=== PATIENT | male | born 1945 | race American Indian/Alaskan Native ===

== ENCOUNTER 2018-10-27 15:16 | Inpatient (IN) | payer OTHER ==
[~2018-10-27] VITALS: Ht 172.7 cm; Wt 89.0 kg
[2018-10-27 17:07] LABS: BASOPHIL % 0.5 % (0-2); PLATELET COUNT 202 x10^3mcL (130-400); RED CELL DISTRIBUTION WIDTH 14.4 % (11.5-14.5)
[2018-10-27 17:24] LABS: OSMOLALITY SERUM 294 mOsm/kg (278-298)
[2018-10-27 17:29] LABS: UA SPECIFIC GRAVITY 1.015 (1.005-1.035); microscopic required? YES; urine erythrocyte NEGATIVE (NEGATIVE)
[2018-10-27 17:31] LABS: ALBUMIN 3.6 g/dL (3.4-5.0); ALKALINE PHOSPHATASE 116 U/L (46-116); ALT/SGPT 48 U/L (16-63); AST/SGOT 68 U/L (15-37); BILIRUBIN TOTAL 1.77 mg/dL (0.20-1.00); CALCIUM 9.3 mg/dL (8.5-10.1); CHLORIDE SERUM 99 mmol/L (98-107); CREATININE SERUM 1.3 mg/dL (0.7-1.3); FREE T4 1.06 ng/dL (0.76-1.46); GLUCOSE SERUM 196 mg/dL (74-106); LIPASE 90 IU/L (73-393)
[2018-10-27 17:37] LABS: AMPHETAMINE QUAL UR NONE DETECTED (See below)
[2018-10-27 17:40] LABS: SODIUM SERUM 137 mmol/L (136-145)
[2018-10-27 17:42] LABS: TOTAL PROTEIN, SERUM 8.6 g/dL (6.4-8.2)
[2018-10-27 17:44] LABS: POTASSIUM SERUM 2.8 mmol/L (3.5-5.1)
[2018-10-27] MEDS ORDERED: CARVEDILOL3.125 M1 PO (18:38)
[2018-10-27] MEDS ORDERED: PLA75 PO (18:38)
[2018-10-27] MEDS ORDERED: FUROSEMIDE20 MG PO (18:39)
[2018-10-27] MEDS ORDERED: LIPI20 PO (18:39)
[2018-10-27] MEDS ORDERED: TAMSULOSIN HYD0.4 M1 PO (18:39)
[2018-10-27] MEDS ORDERED: FENOFIBRATE MI200 MG PO (18:39)
[2018-10-27] MEDS ORDERED: METFORMIN ER500 M1 PO (18:40)
[2018-10-27] MEDS ORDERED: NEURONTIN600 MG PO (18:40)
[2018-10-27] MEDS ORDERED: HYDROCHLOROTHIA25 MG PO (18:41)
[2018-10-27] MEDS ORDERED: MIRAPEX0.25 MG PO (18:41)
[2018-10-27] MEDS ORDERED: POTASSIUM CHLO20 ME1 PO (18:41)
[2018-10-27] MEDS ORDERED: OMEPRAZOLE40 M1 PO (18:42)
[2018-10-27] MEDS ORDERED: CETIRIZINE HYDR10 MG PO (18:42)
[2018-10-27] MEDS ORDERED: HUMALOG100 UNIT/1 SQ (18:42)
[2018-10-27] MEDS ORDERED: VITAMIN D50000 I4 PO (18:43)
[2018-10-27] MEDS ORDERED: CENTRUM MEN'S1 EACH PO (18:43)
[2018-10-27 23:56] VITALS: BP 134/76
[2018-10-28] VITALS (7 sets, daily range): BP systolic 95–135; BP diastolic 58–80; Ht 172.7 cm; Wt 89.0 kg
[2018-10-28 17:15] LABS: CALCIUM 9.3 mg/dL (8.5-10.1); CARBON DIOXIDE 27.5 mmol/L (21-32); CHLORIDE SERUM 101 mmol/L (98-107); CREATININE SERUM 1.4 mg/dL (0.7-1.3); GLUCOSE SERUM 200 mg/dL (74-106); POTASSIUM SERUM 3.1 mmol/L (3.5-5.1); SODIUM SERUM 138 mmol/L (136-145)
[2018-10-29 06:02] VITALS: BP 129/85
[2018-10-29 07:24] LABS: ALKALINE PHOSPHATASE 102 U/L (46-116); ALT/SGPT 40 U/L (16-63); AST/SGOT 61 U/L (15-37); BILIRUBIN TOTAL 1.97 mg/dL (0.20-1.00); CARBON DIOXIDE 27.6 mmol/L (21-32); CHLORIDE SERUM 100 mmol/L (98-107); CREATININE SERUM 1.3 mg/dL (0.7-1.3); GLUCOSE SERUM 191 mg/dL (74-106); MAGNESIUM 2.5 mg/dL (1.8-2.4); SODIUM SERUM 139 mmol/L (136-145)
[2018-10-29 07:25] LABS: TOTAL PROTEIN, SERUM 8.3 g/dL (6.4-8.2)
[2018-10-29 07:39] LABS: BASOPHIL % 0.2 % (0-2); PLATELET COUNT 202 x10^3mcL (130-400); RED CELL DISTRIBUTION WIDTH 14.2 % (11.5-14.5)
[2018-10-29 08:30] VITALS: BP 105/63
[2018-10-29 13:00] VITALS: BP 102/65
[2018-10-29 15:19] VITALS: BP 102/65
== END 2018-10-29 16:31 | disposition home health service (06) | DRG 865 ==
LOC: ED 15:16 → DU 23:01
PROVIDERS: Emergency Medicine; ADMIT Internal Medicine Pulmonary Disease
DX: B34.9 Viral infection, unspecified (principal); G92 Toxic encephalopathy; T40.4X5A Adverse effect of other synthetic narcotics, initial encounter; E87.6 Hypokalemia; E11.9 Type 2 diabetes mellitus without complications; I10 Essential (primary) hypertension; G25.81 Restless legs syndrome; M25.512 Pain in left shoulder; M19.90 Unspecified osteoarthritis, unspecified site; N42.9 Disorder of prostate, unspecified; E78.5 Hyperlipidemia, unspecified; Z96.652 Presence of left artificial knee joint; Y92.009 Unspecified place in unspecified non-institutional (private) residence as the place of occurrence of the external cause
CPT/HCPCS: 82962; 83880; 84439; 87804; G0480; J1885; J1956; J2060; J2270; J2543; J3475; J7050; Q0092

== ENCOUNTER 2018-11-01 07:10 | Inpatient (IN) | payer OTHER ==
[~2018-11-01] VITALS: Ht 175.3 cm; Wt 87.6 kg
[~2018-11-01 07:10] MED LIST: CARVEDILOL3.125 M1 PO; CENTRUM MEN'S1 EACH PO; CETIRIZINE HYDR10 MG PO; FENOFIBRATE MI200 MG PO; FUROSEMIDE20 MG PO; HUMALOG100 UNIT/1 SQ; HYDROCHLOROTHIA25 MG PO; LIPI20 PO; METFORMIN ER500 M1 PO; MIRAPEX0.25 MG PO; NEURONTIN600 MG PO; OMEPRAZOLE40 M1 PO; PLA75 PO; POTASSIUM CHLO20 ME1 PO; TAMSULOSIN HYD0.4 M1 PO; VITAMIN D50000 I4 PO
[2018-11-01 07:13] VITALS: Ht 175.3 cm; Wt 87.6 kg
[2018-11-01 07:56] LABS: BASOPHIL % 0.4 % (0-2); PLATELET COUNT 347 x10^3mcL (130-400); RED CELL DISTRIBUTION WIDTH 13.7 % (11.5-14.5)
[2018-11-01 08:23] LABS: ALBUMIN 2.8 g/dL (3.4-5.0); ALKALINE PHOSPHATASE 135 U/L (46-116); ALT/SGPT 41 U/L (16-63); AST/SGOT 66 U/L (15-37); BILIRUBIN TOTAL 1.72 mg/dL (0.20-1.00); CALCIUM 9.4 mg/dL (8.5-10.1); CARBON DIOXIDE 26.1 mmol/L (21-32); CHLORIDE SERUM 100 mmol/L (98-107); CREATININE SERUM 1.3 mg/dL (0.7-1.3); GLUCOSE SERUM 216 mg/dL (74-106); SODIUM SERUM 137 mmol/L (136-145); TOTAL PROTEIN, SERUM 8.4 g/dL (6.4-8.2)
[2018-11-01 08:26] LABS: POTASSIUM SERUM 2.9 mmol/L (3.5-5.1)
[2018-11-01 09:29] LABS: UA SPECIFIC GRAVITY 1.015 (1.005-1.035); microscopic required? YES; urine erythrocyte NEGATIVE (NEGATIVE)
[2018-11-01 12:15] VITALS: BP 125/74
[2018-11-01 17:01] VITALS: BP 106/60
[2018-11-01 20:30] VITALS: BP 106/64
[2018-11-02 05:56] VITALS: BP 113/60
[2018-11-02 06:31] LABS: CALCIUM 8.9 mg/dL (8.5-10.1); CARBON DIOXIDE 25.2 mmol/L (21-32); CHLORIDE SERUM 105 mmol/L (98-107); GLUCOSE SERUM 191 mg/dL (74-106); MAGNESIUM 2.5 mg/dL (1.8-2.4); SODIUM SERUM 140 mmol/L (136-145)
[2018-11-02 07:30] VITALS: BP 124/71
[2018-11-02] MEDS ORDERED: FUROSEMIDE20 MG PO (11:00)
[2018-11-02 12:30] VITALS: BP 123/81
[2018-11-02 13:03] VITALS: BP 120/81
[2018-11-02 17:42] VITALS: BP 128/79
[2018-11-02 20:18] VITALS: BP 119/74
[2018-11-03 04:35] VITALS: BP 131/80
[2018-11-03 07:31] LABS: CALCIUM 9.2 mg/dL (8.5-10.1); CARBON DIOXIDE 21.5 mmol/L (21-32); CHLORIDE SERUM 108 mmol/L (98-107); CREATININE SERUM 0.9 mg/dL (0.7-1.3); GLUCOSE SERUM 167 mg/dL (74-106); MAGNESIUM 2.3 mg/dL (1.8-2.4); POTASSIUM SERUM 4.2 mmol/L (3.5-5.1); SODIUM SERUM 142 mmol/L (136-145)
[2018-11-03 08:49] VITALS: BP 129/82
[2018-11-03 08:55] VITALS: BP 107/58; BP 129/82
== END 2018-11-03 12:50 | DRG 641 ==
LOC: ED 07:10 → DU 10:30
PROVIDERS: Emergency Medicine; ADMIT Internal Medicine Pulmonary Disease
DX: E87.6 Hypokalemia (principal); J98.11 Atelectasis; T50.1X5A Adverse effect of loop [high-ceiling] diuretics, initial encounter; R26.81 Unsteadiness on feet; E86.0 Dehydration; E87.2 Acidosis; R09.02 Hypoxemia; R50.9 Fever, unspecified; M75.32 Calcific tendinitis of left shoulder; M19.90 Unspecified osteoarthritis, unspecified site; N42.9 Disorder of prostate, unspecified; G25.81 Restless legs syndrome; I10 Essential (primary) hypertension; E11.9 Type 2 diabetes mellitus without complications; E78.5 Hyperlipidemia, unspecified; Z96.652 Presence of left artificial knee joint; Y92.009 Unspecified place in unspecified non-institutional (private) residence as the place of occurrence of the external cause
CPT/HCPCS: 36600; 82962; 85378; 87804; 97112-GP; 97116-GP; 97530-GP; J1644; J1885; J2060; J3475; J3480; Q0092

== ENCOUNTER 2018-11-17 14:38 | Observation (INO) | payer OTHER ==
[~2018-11-17] VITALS: Ht 170.2 cm; Wt 85.5 kg
[2018-11-17 14:42] VITALS: Ht 170.2 cm; Wt 85.5 kg
[2018-11-17] MEDS ORDERED: LASIX20 MG PO (15:06)
[2018-11-17] MEDS ORDERED: HUMULIN 70/303 ML SQ ×2 (15:11)
[2018-11-17] MEDS ORDERED: HYDROCHLOROTHIA25 MG PO (15:20)
[2018-11-17 15:32] LABS: BASOPHIL % 0.2 % (0-2); RED CELL DISTRIBUTION WIDTH 13.5 % (11.5-14.5)
[2018-11-17 15:36] LABS: PLATELET COUNT 671 x10^3mcL (130-400)
[2018-11-17 16:04] LABS: ALKALINE PHOSPHATASE 175 U/L (46-116); ALT/SGPT 32 U/L (16-63); AMYLASE 43 U/L (25-115); AST/SGOT 47 U/L (15-37); BILIRUBIN TOTAL 1.6 mg/dL (0.20-1.00); CALCIUM 9.4 mg/dL (8.5-10.1); CARBON DIOXIDE 22.8 mmol/L (21-32); CHLORIDE SERUM 93 mmol/L (98-107); CREATININE SERUM 1.3 mg/dL (0.7-1.3); GLUCOSE SERUM 188 mg/dL (74-106); LIPASE 150 IU/L (73-393); MAGNESIUM 2.1 mg/dL (1.8-2.4); SODIUM SERUM 134 mmol/L (136-145); T4(THYROXINE) 10.2 ug/dL (4.7-13.3)
[2018-11-17 16:15] LABS: ALBUMIN 2.3 g/dL (3.4-5.0); CHOLESTEROL 74 mg/dL (<200); HDL CHOLESTEROL 17 mg/dL (40-60); TOTAL PROTEIN, SERUM 9.1 g/dL (6.4-8.2)
[2018-11-17 16:18] LABS: POTASSIUM SERUM 2.6 mmol/L (3.5-5.1)
[2018-11-17 17:22] LABS: UA SPECIFIC GRAVITY 1.015 (1.005-1.035); microscopic required? YES; urine erythrocyte NEGATIVE (NEGATIVE)
[2018-11-17 17:32] LABS: AMPHETAMINE QUAL UR NONE DETECTED (See below)
[2018-11-17 21:32] VITALS: BP 110/70
[2018-11-18 05:34] VITALS: BP 113/70
[2018-11-18 07:32] LABS: BASOPHIL % 0.1 % (0-2); RED CELL DISTRIBUTION WIDTH 13.8 % (11.5-14.5)
[2018-11-18 07:48] LABS: PLATELET COUNT 519 x10^3mcL (130-400)
[2018-11-18 08:14] LABS: CALCIUM 8.6 mg/dL (8.5-10.1); CARBON DIOXIDE 26.8 mmol/L (21-32); CHLORIDE SERUM 105 mmol/L (98-107); CREATININE SERUM 0.9 mg/dL (0.7-1.3); GLUCOSE SERUM 148 mg/dL (74-106); MAGNESIUM 2.1 mg/dL (1.8-2.4); POTASSIUM SERUM 3.1 mmol/L (3.5-5.1); SODIUM SERUM 142 mmol/L (136-145)
[2018-11-18 09:00] VITALS: BP 104/58
[2018-11-18 12:35] VITALS: BP 105/71
[2018-11-18 16:35] VITALS: BP 108/72
[2018-11-18 21:24] VITALS: BP 102/66
[2018-11-19 05:11] VITALS: BP 111/70
[2018-11-19 07:36] LABS: CALCIUM 8.7 mg/dL (8.5-10.1); CARBON DIOXIDE 29.6 mmol/L (21-32); CHLORIDE SERUM 105 mmol/L (98-107); GLUCOSE SERUM 123 mg/dL (74-106); MAGNESIUM 1.7 mg/dL (1.8-2.4); POTASSIUM SERUM 3.4 mmol/L (3.5-5.1); SODIUM SERUM 144 mmol/L (136-145)
[2018-11-19 09:57] VITALS: BP 113/77
[2018-11-19 13:24] VITALS: BP 110/63
[2018-11-19 18:40] VITALS: BP 104/97
== END 2018-11-19 18:57 | disposition left against medical advice (07) | DRG 640 ==
LOC: ED 14:38 → DU 18:54
PROVIDERS: Emergency Medicine; Internal Medicine Pulmonary Disease; ADMIT Internal Medicine Pulmonary Disease
DX: E87.6 Hypokalemia (principal); G93.41 Metabolic encephalopathy; E44.1 Mild protein-calorie malnutrition; R55 Syncope and collapse; R26.81 Unsteadiness on feet; M19.90 Unspecified osteoarthritis, unspecified site; M75.32 Calcific tendinitis of left shoulder; I10 Essential (primary) hypertension; N42.9 Disorder of prostate, unspecified; E78.5 Hyperlipidemia, unspecified; G25.81 Restless legs syndrome; Z96.652 Presence of left artificial knee joint
CPT/HCPCS: 36600; 82962; 83880; G0378; G0480; J1815; J1956; J2930; J3480; J7030; J7040; Q0092

== ENCOUNTER 2018-11-29 10:50 | Inpatient (IN) | payer OTHER ==
[~2018-11-29] VITALS: Ht 172.7 cm; Wt 79.4 kg
[~2018-11-29 10:50] MED LIST changes: +HUMULIN 70/303 ML SQ; +LASIX20 MG PO
[2018-11-29 10:58] VITALS: Ht 172.7 cm; Wt 79.4 kg
[2018-11-29 11:20] LABS: BASOPHIL % 0.3 % (0-2); RED CELL DISTRIBUTION WIDTH 13.9 % (11.5-14.5)
[2018-11-29 11:30] LABS: PLATELET COUNT 634 x10^3mcL (130-400)
[2018-11-29 11:37] LABS: CALCIUM 9.2 mg/dL (8.5-10.1); CARBON DIOXIDE 26.2 mmol/L (21-32); CHLORIDE SERUM 103 mmol/L (98-107); CREATININE SERUM 0.9 mg/dL (0.7-1.3); GLUCOSE SERUM 146 mg/dL (74-106); POTASSIUM SERUM 4.1 mmol/L (3.5-5.1); SODIUM SERUM 137 mmol/L (136-145)
[2018-11-29 11:49] LABS: ALKALINE PHOSPHATASE 192 U/L (46-116); ALT/SGPT 21 U/L (16-63); AMYLASE 26 U/L (25-115); AST/SGOT 34 U/L (15-37); BILIRUBIN TOTAL 1.2 mg/dL (0.20-1.00); LIPASE 80 IU/L (73-393); T4(THYROXINE) 8.1 ug/dL (4.7-13.3)
[2018-11-29 11:53] LABS: CHOLESTEROL 52 mg/dL (<200); HDL CHOLESTEROL 19 mg/dL (40-60); TOTAL PROTEIN, SERUM 8.4 g/dL (6.4-8.2)
[2018-11-29 12:49] LABS: microscopic required? YES; urine erythrocyte TRACE (NEGATIVE)
[2018-11-29 12:56] LABS: AMPHETAMINE QUAL UR NONE DETECTED (See below)
[2018-11-29 16:15] VITALS: BP 120/70
[2018-11-29 20:47] VITALS: BP 110/67
[2018-11-30 05:39] VITALS: BP 119/71
[2018-11-30 06:37] LABS: CALCIUM 8.8 mg/dL (8.5-10.1); CARBON DIOXIDE 23.1 mmol/L (21-32); CHLORIDE SERUM 105 mmol/L (98-107); CREATININE SERUM 0.8 mg/dL (0.7-1.3); GLUCOSE SERUM 121 mg/dL (74-106); POTASSIUM SERUM 4.2 mmol/L (3.5-5.1); SODIUM SERUM 139 mmol/L (136-145)
[2018-11-30 07:50] LABS: BASOPHIL % 0.1 % (0-2); RED CELL DISTRIBUTION WIDTH 13.5 % (11.5-14.5)
[2018-11-30 07:53] LABS: PLATELET COUNT 603 x10^3mcL (130-400)
[2018-11-30 09:11] VITALS: BP 116/70
[2018-11-30 18:03] VITALS: BP 117/70
[2018-11-30 21:51] VITALS: BP 123/72
[2018-12-01 05:41] VITALS: BP 120/73
[2018-12-01 07:12] LABS: BASOPHIL % 0 % (0-2); PLATELET COUNT 692 x10^3mcL (130-400); RED CELL DISTRIBUTION WIDTH 14.3 % (11.5-14.5)
[2018-12-01 07:13] LABS: CALCIUM 8.8 mg/dL (8.5-10.1); CARBON DIOXIDE 22.3 mmol/L (21-32); CHLORIDE SERUM 108 mmol/L (98-107); CREATININE SERUM 0.7 mg/dL (0.7-1.3); GLUCOSE SERUM 125 mg/dL (74-106); POTASSIUM SERUM 4.1 mmol/L (3.5-5.1); SODIUM SERUM 144 mmol/L (136-145)
[2018-12-01 07:43] VITALS: BP 110/66
[2018-12-01 08:45] VITALS: BP 106/68
[2018-12-01 15:31] VITALS: BP 112/70
[2018-12-01 20:50] VITALS: BP 101/64
[2018-12-02 05:57] VITALS: BP 129/74
[2018-12-02 08:31] VITALS: BP 125/73
[2018-12-02 08:36] LABS: CHLORIDE SERUM 108 mmol/L (98-107); POTASSIUM SERUM 3.7 mmol/L (3.5-5.1); SODIUM SERUM 140 mmol/L (136-145)
[2018-12-02 08:53] LABS: BASOPHIL % 0.2 % (0-2); PLATELET COUNT 656 x10^3mcL (130-400)
[2018-12-02 09:01] LABS: CARBON DIOXIDE 20.8 mmol/L (21-32); CREATININE SERUM 0.7 mg/dL (0.7-1.3); GLUCOSE SERUM 122 mg/dL (74-106)
[2018-12-02 12:23] VITALS: BP 130/72
[2018-12-02 16:41] VITALS: BP 129/73
[2018-12-02 20:37] VITALS: BP 110/71
[2018-12-03 05:34] VITALS: BP 124/77
[2018-12-03 07:11] VITALS: BP 131/81
[2018-12-03 16:51] VITALS: BP 124/79
[2018-12-03 21:27] VITALS: BP 120/74
[2018-12-04 05:32] VITALS: BP 128/71
[2018-12-04 10:02] VITALS: BP 142/80
[2018-12-04 17:33] VITALS: BP 136/80
[2018-12-04 21:04] VITALS: BP 119/71
[2018-12-05 05:43] VITALS: BP 126/74
[2018-12-05 06:16] LABS: RED CELL DISTRIBUTION WIDTH 14.5 % (11.5-14.5)
[2018-12-05 06:45] LABS: ALKALINE PHOSPHATASE 222 U/L (46-116); ALT/SGPT 19 U/L (16-63); AST/SGOT 37 U/L (15-37); BILIRUBIN DIRECT 0.41 mg/dL (0.0-0.2); BILIRUBIN TOTAL 0.6 mg/dL (0.20-1.00); CALCIUM 8.1 mg/dL (8.5-10.1); CHLORIDE SERUM 110 mmol/L (98-107); CREATININE SERUM 0.7 mg/dL (0.7-1.3); GLUCOSE SERUM 145 mg/dL (74-106); PLATELET COUNT 598 x10^3mcL (130-400); POTASSIUM SERUM 3.4 mmol/L (3.5-5.1); SODIUM SERUM 141 mmol/L (136-145); TOTAL PROTEIN, SERUM 6.8 g/dL (6.4-8.2)
[2018-12-05 06:47] LABS: ALBUMIN 1.2 g/dL (3.4-5.0)
[2018-12-05 09:59] VITALS: BP 130/77
[2018-12-05 13:07] LABS: BAND NEUTROPHIL 0 % (0-10); BASOPHIL 0 % (0-2); MONOCYTE 3 % (0-7); SEGMENTED NEUTROPHILS 92 % (37-75)
[2018-12-05 13:08] LABS: PLATELET MORPHOLOGY PLATELETS INCREASED; rbc morphology (normal/abnorm) ABNORMAL (NORMAL)
[2018-12-05 13:09] LABS: acanthocyte (spur cell) 2+
[2018-12-05 14:07] VITALS: BP 127/73
[2018-12-05 18:19] VITALS: BP 131/80
[2018-12-05 20:48] VITALS: BP 122/70
[2018-12-06 05:52] VITALS: BP 121/76
[2018-12-06 09:00] VITALS: BP 143/84
[2018-12-06 17:28] VITALS: BP 135/77
[2018-12-06 21:28] VITALS: BP 132/89
[2018-12-07 05:32] VITALS: BP 134/76
[2018-12-07 09:24] VITALS: BP 133/81
[2018-12-07 16:54] VITALS: BP 133/79
[2018-12-07 20:57] VITALS: BP 134/79
[2018-12-08 06:03] VITALS: BP 130/77
[2018-12-08 09:29] VITALS: BP 135/81
[2018-12-08 17:08] VITALS: BP 140/80
[2018-12-08 21:40] VITALS: BP 138/83
[2018-12-09 05:34] VITALS: BP 143/82
[2018-12-09 08:23] LABS: RED CELL DISTRIBUTION WIDTH 14.9 % (11.5-14.5)
[2018-12-09 08:24] LABS: PLATELET COUNT 567 x10^3mcL (130-400)
[2018-12-09 08:47] LABS: ALKALINE PHOSPHATASE 271 U/L (46-116); ALT/SGPT 26 U/L (16-63); AST/SGOT 49 U/L (15-37); BILIRUBIN DIRECT 0.36 mg/dL (0.0-0.2); BILIRUBIN TOTAL 0.5 mg/dL (0.20-1.00); CALCIUM 8.4 mg/dL (8.5-10.1); CARBON DIOXIDE 22.3 mmol/L (21-32); CHLORIDE SERUM 113 mmol/L (98-107); CREATININE SERUM 0.8 mg/dL (0.7-1.3); GLUCOSE SERUM 146 mg/dL (74-106); POTASSIUM SERUM 3.2 mmol/L (3.5-5.1); SODIUM SERUM 146 mmol/L (136-145); TOTAL PROTEIN, SERUM 7.1 g/dL (6.4-8.2)
[2018-12-09 08:48] LABS: ALBUMIN 1.2 g/dL (3.4-5.0)
[2018-12-09 08:53] VITALS: BP 137/89
[2018-12-09 12:57] LABS: BAND NEUTROPHIL 5 % (0-10); BASOPHIL 0 % (0-2)
[2018-12-09 12:58] LABS: MONOCYTE 7 % (0-7); SEGMENTED NEUTROPHILS 80 % (37-75)
[2018-12-09 13:01] LABS: rbc morphology (normal/abnorm) ABNORMAL (NORMAL)
[2018-12-09 17:29] VITALS: BP 142/92
[2018-12-09 21:06] VITALS: BP 143/85
[2018-12-10 05:31] VITALS: BP 130/75
[2018-12-10 07:01] LABS: BASOPHIL % 0.2 % (0-2)
[2018-12-10 07:14] LABS: ALKALINE PHOSPHATASE 280 U/L (46-116); ALT/SGPT 24 U/L (16-63); AST/SGOT 45 U/L (15-37); BILIRUBIN TOTAL 0.8 mg/dL (0.20-1.00); CALCIUM 8.5 mg/dL (8.5-10.1); CARBON DIOXIDE 25.5 mmol/L (21-32); CHLORIDE SERUM 115 mmol/L (98-107); CREATININE SERUM 0.8 mg/dL (0.7-1.3); GLUCOSE SERUM 159 mg/dL (74-106); MAGNESIUM 2.1 mg/dL (1.8-2.4); PHOSPHOROUS 2.5 mg/dL (2.5-4.9); POTASSIUM SERUM 3.3 mmol/L (3.5-5.1); SODIUM SERUM 147 mmol/L (136-145); TOTAL PROTEIN, SERUM 6.8 g/dL (6.4-8.2)
[2018-12-10 07:17] LABS: ALBUMIN 1.2 g/dL (3.4-5.0)
[2018-12-10 07:19] LABS: PLATELET COUNT 625 x10^3mcL (130-400)
[2018-12-10 09:09] VITALS: BP 138/83
[2018-12-10 18:23] VITALS: BP 139/88
[2018-12-10 21:33] VITALS: BP 145/88
[2018-12-11 06:02] VITALS: BP 144/87
[2018-12-11 06:32] LABS: ALKALINE PHOSPHATASE 287 U/L (46-116); ALT/SGPT 27 U/L (16-63); AST/SGOT 50 U/L (15-37); BILIRUBIN TOTAL 0.7 mg/dL (0.20-1.00); CALCIUM 8.6 mg/dL (8.5-10.1); CHLORIDE SERUM 114 mmol/L (98-107); CREATININE SERUM 0.9 mg/dL (0.7-1.3); GLUCOSE SERUM 170 mg/dL (74-106); MAGNESIUM 2.3 mg/dL (1.8-2.4); PHOSPHOROUS 3.1 mg/dL (2.5-4.9); POTASSIUM SERUM 3.4 mmol/L (3.5-5.1); SODIUM SERUM 148 mmol/L (136-145); TOTAL PROTEIN, SERUM 7.3 g/dL (6.4-8.2)
[2018-12-11 06:44] LABS: RED CELL DISTRIBUTION WIDTH 14.2 % (11.5-14.5)
[2018-12-11 06:53] LABS: ALBUMIN 1.2 g/dL (3.4-5.0)
[2018-12-11 08:28] LABS: PLATELET COUNT 671 x10^3mcL (130-400)
[2018-12-11 09:18] VITALS: BP 147/87
[2018-12-11 11:17] LABS: BAND NEUTROPHIL 0 % (0-10); BASOPHIL 0 % (0-2); MONOCYTE 5 % (0-7); SEGMENTED NEUTROPHILS 90 % (37-75)
[2018-12-11 11:19] LABS: PLATELET MORPHOLOGY PLATELETS INCREASED; rbc morphology (normal/abnorm) ABNORMAL (NORMAL)
[2018-12-11 12:46] VITALS: BP 143/92
[2018-12-11 17:25] VITALS: BP 148/98
[2018-12-11 20:00] VITALS: BP 133/82
[2018-12-12 05:50] VITALS: BP 145/88
[2018-12-12 06:47] LABS: ALKALINE PHOSPHATASE 256 U/L (46-116); ALT/SGPT 21 U/L (16-63); AST/SGOT 39 U/L (15-37); BILIRUBIN TOTAL 0.7 mg/dL (0.20-1.00); CALCIUM 8.7 mg/dL (8.5-10.1); CARBON DIOXIDE 27.2 mmol/L (21-32); CHLORIDE SERUM 117 mmol/L (98-107); CREATININE SERUM 0.8 mg/dL (0.7-1.3); GLUCOSE SERUM 158 mg/dL (74-106); MAGNESIUM 2.3 mg/dL (1.8-2.4); PHOSPHOROUS 2.8 mg/dL (2.5-4.9); POTASSIUM SERUM 3.2 mmol/L (3.5-5.1); SODIUM SERUM 151 mmol/L (136-145); TOTAL PROTEIN, SERUM 7.3 g/dL (6.4-8.2)
[2018-12-12 06:57] LABS: ALBUMIN 1.2 g/dL (3.4-5.0)
[2018-12-12 07:11] LABS: PLATELET COUNT 565 x10^3mcL (130-400); RED CELL DISTRIBUTION WIDTH 15.1 % (11.5-14.5)
[2018-12-12 08:48] VITALS: BP 137/82
[2018-12-12 09:34] LABS: BAND NEUTROPHIL 0 % (0-10); BASOPHIL 0 % (0-2); MONOCYTE 4 % (0-7); SEGMENTED NEUTROPHILS 90 % (37-75)
[2018-12-12 09:35] LABS: PLATELET MORPHOLOGY PLATELETS INCREASED; rbc morphology (normal/abnorm) ABNORMAL (NORMAL)
[2018-12-12 12:54] VITALS: BP 143/83
[2018-12-12 17:32] VITALS: BP 131/83
[2018-12-12 19:57] VITALS: BP 129/79
[2018-12-13 05:23] VITALS: BP 138/84
[2018-12-13 06:43] LABS: ALKALINE PHOSPHATASE 257 U/L (46-116); ALT/SGPT 15 U/L (16-63); AST/SGOT 45 U/L (15-37); BILIRUBIN TOTAL 0.68 mg/dL (0.20-1.00); CALCIUM 8.7 mg/dL (8.5-10.1); CARBON DIOXIDE 27.7 mmol/L (21-32); CHLORIDE SERUM 120 mmol/L (98-107); CREATININE SERUM 0.6 mg/dL (0.7-1.3); GLUCOSE SERUM 136 mg/dL (74-106); MAGNESIUM 2.3 mg/dL (1.8-2.4); PHOSPHOROUS 2.8 mg/dL (2.5-4.9); SODIUM SERUM 156 mmol/L (136-145); TOTAL PROTEIN, SERUM 7.1 g/dL (6.4-8.2)
[2018-12-13 06:54] LABS: ALBUMIN 1.1 g/dL (3.4-5.0)
[2018-12-13 07:14] LABS: BASOPHIL % 0 % (0-2); RED CELL DISTRIBUTION WIDTH 14.9 % (11.5-14.5)
[2018-12-13 07:15] LABS: PLATELET COUNT 549 x10^3mcL (130-400)
[2018-12-13 09:38] VITALS: BP 138/83
[2018-12-13 13:19] VITALS: BP 139/87
[2018-12-13 16:34] VITALS: BP 134/74
[2018-12-13 21:13] VITALS: BP 126/82
[2018-12-14 05:37] VITALS: BP 135/85
[2018-12-14 06:59] LABS: PLATELET COUNT 498 x10^3mcL (130-400); RED CELL DISTRIBUTION WIDTH 15.4 % (11.5-14.5)
[2018-12-14 07:01] LABS: CALCIUM 8.5 mg/dL (8.5-10.1); CARBON DIOXIDE 29.2 mmol/L (21-32); CHLORIDE SERUM 120 mmol/L (98-107); CREATININE SERUM 0.8 mg/dL (0.7-1.3); GLUCOSE SERUM 204 mg/dL (74-106); SODIUM SERUM 156 mmol/L (136-145)
[2018-12-14 08:13] LABS: POTASSIUM SERUM 2.8 mmol/L (3.5-5.1)
[2018-12-14 10:04] VITALS: BP 132/80
[2018-12-14 10:24] LABS: BAND NEUTROPHIL 6 % (0-10); BASOPHIL 0 % (0-2); MONOCYTE 6 % (0-7); SEGMENTED NEUTROPHILS 82 % (37-75)
[2018-12-14 10:27] LABS: rbc morphology (normal/abnorm) ABNORMAL (NORMAL); target cell (codocyte) 1+
[2018-12-14 13:32] VITALS: BP 139/76
[2018-12-14 18:07] VITALS: BP 133/84
[2018-12-14 21:16] VITALS: BP 135/80
[2018-12-15 05:48] VITALS: BP 139/91
[2018-12-15 07:18] VITALS: BP 146/87
[2018-12-15 16:04] VITALS: BP 137/87
[2018-12-15 19:13] LABS: CALCIUM 8.4 mg/dL (8.5-10.1); CARBON DIOXIDE 28.2 mmol/L (21-32); CHLORIDE SERUM 120 mmol/L (98-107); CREATININE SERUM 0.7 mg/dL (0.7-1.3); GLUCOSE SERUM 200 mg/dL (74-106); POTASSIUM SERUM 3.6 mmol/L (3.5-5.1); SODIUM SERUM 155 mmol/L (136-145)
[2018-12-15 20:45] VITALS: BP 132/80
[2018-12-16 05:36] VITALS: BP 146/83
[2018-12-16 06:03] LABS: ALBUMIN 1.2 g/dL (3.4-5.0); ALKALINE PHOSPHATASE 225 U/L (46-116); ALT/SGPT 20 U/L (16-63); AST/SGOT 38 U/L (15-37); BILIRUBIN TOTAL 0.6 mg/dL (0.20-1.00); CALCIUM 8.2 mg/dL (8.5-10.1); CARBON DIOXIDE 29.7 mmol/L (21-32); CHLORIDE SERUM 117 mmol/L (98-107); CREATININE SERUM 0.7 mg/dL (0.7-1.3); GLUCOSE SERUM 202 mg/dL (74-106); MAGNESIUM 2.1 mg/dL (1.8-2.4); POTASSIUM SERUM 3.2 mmol/L (3.5-5.1); SODIUM SERUM 151 mmol/L (136-145); TOTAL PROTEIN, SERUM 6.8 g/dL (6.4-8.2)
[2018-12-16 06:36] LABS: BASOPHIL % 0.3 % (0-2); PLATELET COUNT 483 x10^3mcL (130-400); RED CELL DISTRIBUTION WIDTH 15.4 % (11.5-14.5)
[2018-12-16 09:13] VITALS: BP 133/80
[2018-12-16 13:59] VITALS: BP 124/75
[2018-12-16 15:54] VITALS: BP 124/75
[2018-12-16 20:00] VITALS: BP 116/73
[2018-12-16 20:52] VITALS: BP 116/73
[2018-12-17 05:35] VITALS: BP 131/81
[2018-12-17 06:48] LABS: BASOPHIL % 0.4 % (0-2)
[2018-12-17 06:51] LABS: PLATELET COUNT 416 x10^3mcL (130-400); RED CELL DISTRIBUTION WIDTH 15.6 % (11.5-14.5)
[2018-12-17 07:03] LABS: ALKALINE PHOSPHATASE 258 U/L (46-116); ALT/SGPT 19 U/L (16-63); AST/SGOT 43 U/L (15-37); BILIRUBIN DIRECT 0.45 mg/dL (0.0-0.2); BILIRUBIN TOTAL 0.7 mg/dL (0.20-1.00); CALCIUM 8.1 mg/dL (8.5-10.1); CARBON DIOXIDE 29.5 mmol/L (21-32); CHLORIDE SERUM 113 mmol/L (98-107); CREATININE SERUM 0.7 mg/dL (0.7-1.3); GLUCOSE SERUM 205 mg/dL (74-106); POTASSIUM SERUM 3.2 mmol/L (3.5-5.1); SODIUM SERUM 147 mmol/L (136-145); TOTAL PROTEIN, SERUM 6.9 g/dL (6.4-8.2)
[2018-12-17 07:07] LABS: ALBUMIN 1.2 g/dL (3.4-5.0)
[2018-12-17 09:07] VITALS: BP 137/77
[2018-12-17 15:55] VITALS: BP 124/79
[2018-12-17 21:20] VITALS: BP 132/83
[2018-12-18 05:42] VITALS: BP 130/82
[2018-12-18 09:26] VITALS: BP 140/85
[2018-12-18 17:08] VITALS: BP 134/84
[2018-12-18 21:01] VITALS: BP 140/89
[2018-12-19 05:27] VITALS: BP 133/88
[2018-12-19 10:26] VITALS: BP 130/82
[2018-12-19 13:08] VITALS: BP 130/82
[2018-12-19 18:03] VITALS: BP 131/80
[2018-12-19 21:33] VITALS: BP 135/93
[2018-12-20 05:30] VITALS: BP 131/82
[2018-12-20 09:44] VITALS: BP 132/89
[2018-12-20 10:45] LABS: PLATELET COUNT 478 x10^3mcL (130-400); RED CELL DISTRIBUTION WIDTH 16.2 % (11.5-14.5)
[2018-12-20 10:46] LABS: BASOPHIL % 0.1 % (0-2)
[2018-12-20 17:11] VITALS: BP 135/77
[2018-12-20 20:00] VITALS: BP 95/59
[2018-12-21 01:03] VITALS: BP 112/75
[2018-12-21 05:29] VITALS: BP 111/73
[2018-12-21 06:28] LABS: CALCIUM 8.8 mg/dL (8.5-10.1); CARBON DIOXIDE 30.5 mmol/L (21-32); CHLORIDE SERUM 115 mmol/L (98-107); CREATININE SERUM 0.9 mg/dL (0.7-1.3); GLUCOSE SERUM 201 mg/dL (74-106); POTASSIUM SERUM 3.3 mmol/L (3.5-5.1); SODIUM SERUM 152 mmol/L (136-145)
[2018-12-21 09:21] VITALS: BP 109/74
[2018-12-21 12:58] VITALS: BP 106/68
[2018-12-21 15:52] VITALS: BP 105/72
[2018-12-21 21:42] VITALS: BP 108/69
[2018-12-22 06:46] VITALS: BP 108/73
[2018-12-22 09:38] VITALS: BP 122/60
[2018-12-22 09:42] VITALS: BP 116/74
[2018-12-22 17:38] VITALS: BP 112/74
[2018-12-22 21:12] VITALS: BP 116/78
[2018-12-23 05:16] VITALS: BP 115/71
[2018-12-23 08:00] VITALS: BP 108/55
[2018-12-23 11:44] VITALS: BP 118/78
[2018-12-23 15:13] VITALS: BP 126/79
[2018-12-23 22:23] VITALS: BP 116/75
[2018-12-24 05:25] VITALS: BP 119/69
[2018-12-24 10:00] VITALS: BP 125/83
[2018-12-24 12:48] VITALS: BP 124/82
[2018-12-24 18:09] VITALS: BP 137/87
[2018-12-24 21:01] VITALS: BP 116/80
[2018-12-25 05:34] VITALS: BP 118/84
[2018-12-25 06:39] LABS: CALCIUM 8.4 mg/dL (8.5-10.1); CARBON DIOXIDE 29.8 mmol/L (21-32); CHLORIDE SERUM 115 mmol/L (98-107); CREATININE SERUM 0.8 mg/dL (0.7-1.3); GLUCOSE SERUM 240 mg/dL (74-106); POTASSIUM SERUM 3.1 mmol/L (3.5-5.1); SODIUM SERUM 152 mmol/L (136-145)
[2018-12-25 06:50] LABS: BASOPHIL % 0.3 % (0-2); PLATELET COUNT 332 x10^3mcL (130-400)
[2018-12-25 06:57] LABS: RED CELL DISTRIBUTION WIDTH 17.7 % (11.5-14.5)
[2018-12-25 08:55] VITALS: BP 131/80
[2018-12-25 13:31] VITALS: BP 115/81
[2018-12-25 16:26] VITALS: BP 122/75
[2018-12-25 20:54] VITALS: BP 114/72
[2018-12-26 05:17] VITALS: BP 115/67
[2018-12-26 06:28] LABS: PLATELET COUNT 373 x10^3mcL (130-400)
[2018-12-26 06:34] LABS: BASOPHIL % 0 % (0-2); RED CELL DISTRIBUTION WIDTH 17.6 % (11.5-14.5)
[2018-12-26 06:49] LABS: CALCIUM 8.4 mg/dL (8.5-10.1); CARBON DIOXIDE 30.4 mmol/L (21-32); CHLORIDE SERUM 114 mmol/L (98-107); CREATININE SERUM 0.8 mg/dL (0.7-1.3); GLUCOSE SERUM 256 mg/dL (74-106); POTASSIUM SERUM 3.6 mmol/L (3.5-5.1); SODIUM SERUM 148 mmol/L (136-145)
[2018-12-26 10:08] VITALS: BP 117/71
[2018-12-26 12:57] VITALS: BP 116/74
[2018-12-26 16:24] VITALS: BP 116/74
[2018-12-26 16:50] VITALS: BP 100/63
[2018-12-26 21:12] VITALS: BP 104/61
[2018-12-27 05:21] VITALS: BP 123/76
[2018-12-27 09:39] VITALS: BP 123/77
[2018-12-27 13:42] VITALS: BP 139/93
[2018-12-27 17:29] VITALS: BP 121/76
[2018-12-27 21:03] VITALS: BP 126/77
[2018-12-28 05:47] VITALS: BP 126/81
[2018-12-28 06:16] LABS: CHLORIDE SERUM 111 mmol/L (98-107); CREATININE SERUM 0.7 mg/dL (0.7-1.3); GLUCOSE SERUM 234 mg/dL (74-106); POTASSIUM SERUM 3.1 mmol/L (3.5-5.1); SODIUM SERUM 144 mmol/L (136-145)
[2018-12-28 08:06] LABS: BASOPHIL % 0.2 % (0-2); PLATELET COUNT 369 x10^3mcL (130-400); RED CELL DISTRIBUTION WIDTH 18.4 % (11.5-14.5)
[2018-12-28 09:15] VITALS: BP 125/80
[2018-12-28 12:51] VITALS: BP 129/81
[2018-12-28 18:00] VITALS: BP 127/80
[2018-12-28 20:43] VITALS: BP 121/82
[2018-12-29 05:48] VITALS: BP 122/75
[2018-12-29 09:03] VITALS: BP 126/77
[2018-12-29 13:46] VITALS: BP 126/77
== END 2018-12-29 15:23 | DRG 56 ==
LOC: ED 10:50 → DU 14:43 → MU 14:43 → DU 12-11 11:50 → MU 12-14 10:51 → DU 12-20 12:32 → MU 12-28 15:15
PROVIDERS: Emergency Medicine; Internal Medicine; Internal Medicine Pulmonary Disease; ADMIT Internal Medicine Pulmonary Disease
PROC: 0DH68UZ Insertion of Feeding Device into Stomach, Via Natural or Artificial Opening Endoscopic (ICD-10-PCS; principal; 2018-12-16 08:00)
DX: G12.22 Progressive bulbar palsy (principal); J69.0 Pneumonitis due to inhalation of food and vomit; E87.0 Hyperosmolality and hypernatremia; E46 Unspecified protein-calorie malnutrition; F03.90 Unspecified dementia, unspecified severity, without behavioral disturbance, psychotic disturbance, mood disturbance, and anxiety; E86.0 Dehydration; R13.10 Dysphagia, unspecified; R63.4 Abnormal weight loss; D53.9 Nutritional anemia, unspecified; I10 Essential (primary) hypertension; E11.9 Type 2 diabetes mellitus without complications; N40.0 Benign prostatic hyperplasia without lower urinary tract symptoms; E78.5 Hyperlipidemia, unspecified; M19.90 Unspecified osteoarthritis, unspecified site; G25.81 Restless legs syndrome; Z96.652 Presence of left artificial knee joint; Z91.81 History of falling; Z74.01 Bed confinement status; Z68.28 Body mass index [BMI] 28.0-28.9, adult; Z79.84 Long term (current) use of oral hypoglycemic drugs
CPT/HCPCS: 36600; 43235; 82962; 83880; 92526-GN; 92610; 97110-GP; 97112-GP; 97116-GP; 97530-GP; G0480; J0690; J0696; J1200; J1610; J1644; J1650; J1815; J2250; J2310; J2543; J3010; J3370; J3430; J3480; J3490; J7030; J7040; J7070; J7120; J7620; Q0092